=== PATIENT | female | born 1985 | race Two or more races ===

== ENCOUNTER 2025-01-13 14:29 | Emergency (ER) | payer MEDICAID, OTHER ==
[~2025-01-13] VITALS: Ht 121.9 cm; Wt 81.6 kg
[2025-01-13] MEDS ORDERED: ACETAMINOPHEN 325 MG TABLET ONE (16:01)
[2025-01-13] MEDS: ACETAMINOPHEN 325 MG TABLET PO ONE (16:05)
[2025-01-13] MEDS ORDERED: IBUP-1955 PO (16:14)
[2025-01-13] MEDS ORDERED: ACET325C7 PO (16:14)
[2025-01-13] MEDS ORDERED: LIDO30AD10 TP (16:14)
[2025-01-13 16:53] VITALS: BP 100/67; TEMP 97.7; O2SAT 100
== END 2025-01-13 16:54 | disposition home or self-care (01) ==
LOC: ER 14:35
DX: R07.89 Other chest pain (principal); M54.50 Low back pain, unspecified; F17.210 Nicotine dependence, cigarettes, uncomplicated; Z60.2 Problems related to living alone
CPT/HCPCS: 71045-TC; 72074-TC